=== PATIENT | female | born 1995 | race Caucasian/White ===

== ENCOUNTER 2019-10-24 10:29 | Outpatient (CLI) | payer OTHER ==
--- NOTE | 2019-10-24 17:41 | ULT ---
OB ULTRASOUND: 10/24/19 HISTORY: anatomy. FINDINGS: A single live intrauterine gestation is seen with measurements corresponding to an estimated gestatio nal age of 20 weeks, 0 days and TUAN at 03/12/20. The estimated weight measures 327 grams or 12 oz (46th percentile by Hadlock criteria). measurements are as follows: BPD 4.42 cm 19 weeks, 3 days HC 17.32 cm 20 weeks, 0 days AC 14.90 cm 20 weeks, 2 days FL 3.19 cm 20 weeks, 0 days heart rate measures 149 beats per minute. Placenta is posterior located without evidence of zion centa previa. Amniotic fluid index measures 10.5 cm. Cervical length measures 4.2 cm. Three vessel cord, cord insertion, kidneys, bladder, stomach, four chambered heart, lateral sulma tricles, cerebellum, spine, lips/nose, upper and lower extremities are visualized. No definite anomalies are seen. IMPRESSION: Single live intrauterine of 20 weeks estimated gestational age and TUAN at 03/12/20. POS: TALI
== END 2019-10-24 10:30 | disposition home or self-care (01) ==
LOC: BICULT 10:29
PROVIDERS: ATTEND Family Medicine
DX: Z34.02 Encounter for supervision of normal first pregnancy, second trimester (principal); Z3A.20 20 weeks gestation of pregnancy
CPT/HCPCS: 76805

== ENCOUNTER 2020-03-12 14:58 | Outpatient (CLI) | payer OTHER ==
[2020-03-15 00:12] LABS: SARS-CoV-2 MS2 Positive; SARS-CoV-2 N Gene Negative; SARS-CoV-2 S Gene Negative; SARS-CoV-2 by NAA Not Detected (Not Detected); SARS-CoV-2 orf1ab Negative
== END 2020-03-12 14:59 | disposition home or self-care (01) ==
LOC: LABBT 14:58
PROVIDERS: ATTEND Family Medicine
DX: Z20.828 Contact with and (suspected) exposure to other viral communicable diseases (principal)
CPT/HCPCS: 87635; U0003

== ENCOUNTER 2020-03-15 05:57 | Inpatient (IN) | payer OTHER ==
[2020-03-15 06:24] VITALS: BMI 39.8
[2020-03-15] MEDS ORDERED: Lidocaine 1% (PF) 30 ML VIAL SC PRN (07:34)
[2020-03-15] MEDS ORDERED: Ibuprofen 800 MG TAB PO PRN (07:34)
[2020-03-15] MEDS ORDERED: Misoprostol 200 MCG TAB PR PRN (07:34)
[2020-03-15] MEDS ORDERED: Butorphanol Tartrate 1 MG/ML VIAL SLOW IVP PRN (07:34)
[2020-03-15] MEDS ORDERED: hydrALAZINE 20 MG/ML VIAL SLOW IVP PRN (07:34)
[2020-03-15] MEDS ORDERED: Diphenoxylate HCl/Atropine Tablet PO PRN (07:34)
[2020-03-15] MEDS ORDERED: Methylergonovine 0.2 MG/ML VIAL IM PRN (07:34)
[2020-03-15] MEDS ORDERED: NS / Oxytocin 40 units/1000ml 1,000 ML IV PRN (07:34)
[2020-03-15] MEDS ORDERED: HYDROcodone/Acetaminophen 5/325 mg Tablet PO PRN (07:34)
[2020-03-15] MEDS ORDERED: Promethazine HCl 25 MG/ML VIAL IM PRN ×3 (07:34→22:15)
[2020-03-15] MEDS ORDERED: Ondansetron PF 4 MG/2 ML Vial IVP PRN ×3 (07:34→22:15)
[2020-03-15] MEDS ORDERED: NS w/ Oxytocin 10 units 500 ML IV SCH ×2 (07:45)
[2020-03-15] MEDS ORDERED: Fentanyl 4 mcg/Bup 0.1% Cadd 100 ML ONE (08:07)
[2020-03-15 08:13] LABS: Hemoglobin 11.4 g/dL (12.0-16.0); Mean Corpuscular HGB CONC 32.7 g/dL (32.0-36.0); Mean Corpuscular Hemoglobin 27.9 pg (27.0-31.0); Mean Corpuscular Volume 85.4 fL (78.0-98.0); Mean Platelet Volume 10.6 fL (7.4-10.4); Platelet Count 212 thou/uL (130-400); RBC Distribution Width 12.7 % (11.5-14.5); Red Blood Cell (RBC) Count 4.07 mill/uL (4.20-5.40); White Blood Cell (WBC) Count 16.7 thou/uL (4.8-10.8)
[2020-03-15 08:52] LABS: HBSAg Index 0.15 S/CO (0-0.99); Hep B Surf Ag Non-Reactive S/CO (NonReactive)
[2020-03-15 08:55] LABS: Syphilis Antibody Nonreactive (Nonreactive); Syphilis Antibody Index 0.04 S/CO (<1.00 Non-Reactive)
[2020-03-15] MEDS ORDERED: Acetaminophen 325 MG TAB PO PRN (09:08)
[2020-03-15] MEDS ORDERED: diphenhydrAMINE 50 MG/ML VIAL IVP PRN ×2 (09:08→22:15)
[2020-03-15] MEDS ORDERED: EPHEDRINE 25 MG/5 ML SYRINGE SLOW IVP PRN (09:08)
[2020-03-15] MEDS ORDERED: Naloxone HCl 0.4 mg/ml Vial IVP PRN ×4 (09:08→22:15)
[2020-03-15] MEDS ORDERED: Lactated Ringer's 500 ML IV PRN (09:08)
[2020-03-15] MEDS ORDERED: Fentanyl 4 mcg/Bupivacaine 0.1% Cassette 100 ML EPIDURAL SCH (09:15)
[2020-03-15] MEDS ORDERED: Communication Order-Pharmacy FS SCH ×2 (09:15→22:15)
[2020-03-15] MEDS ORDERED: EPHEDRINE 25 MG/5 ML SYRINGE ONE (13:25)
[2020-03-15] MEDS ORDERED: Bupivacaine HCl 0.5%/Epinephrine 1:200,000/PF 30 ml Vial ONE (13:25)
[2020-03-15] MEDS ORDERED: Azithromycin 500 MG VIAL ONE (20:29)
[2020-03-15] MEDS ORDERED: Fentanyl 100 MCG/2 ML VIAL ONE (20:53)
[2020-03-15] MEDS ORDERED: Morphine PF 10 MG/10 ML VIAL ONE (20:53)
[2020-03-15] MEDS ORDERED: Ondansetron PF 4 MG/2 ML Vial ONE (20:54)
[2020-03-15] MEDS ORDERED: PHENYLEPHRINE-NS 100 MCG/ML 10 ML SYRINGE ONE (20:54)
[2020-03-15] MEDS ORDERED: Ketorolac Tromethamine 30 MG/ML VIAL ONE (20:54)
[2020-03-15] MEDS ORDERED: ePHEDrine 50 MG/ML VIAL ONE (20:54)
[2020-03-15] MEDS ORDERED: Dexamethasone 4 mg/ml Vial ONE (20:54)
[2020-03-15] MEDS ORDERED: Oxytocin 10 UNITS/ML VIAL ONE (20:54)
[2020-03-15] MEDS ORDERED: Methylergonovine 0.2 MG/ML VIAL ONE (21:27)
[2020-03-15] MEDS ORDERED: Carboprost 250 MCG/ML AMP ONE ×2 (21:27→21:41)
[2020-03-15] MEDS: Carboprost 250 MCG/ML AMP IM PRN ×2 (21:29→21:48)
[2020-03-15] MEDS ORDERED: Misoprostol 200 MCG TAB ONE (21:32)
[2020-03-15] MEDS ORDERED: Promethazine HCl 25 MG/ML VIAL ONE (22:02)
[2020-03-15] MEDS ORDERED: Ondansetron HCl/PF 4 MG/2 ML Vial IVP PRN (22:15)
[2020-03-15] MEDS ORDERED: HYDROmorphone 2 MG/ML VIAL SLOW IVP PRN (22:15)
[2020-03-15] MEDS ORDERED: L&D-Morphine 4 MG/ML VIAL SLOW IVP PRN (22:15)
[2020-03-15] MEDS ORDERED: Ketorolac Tromethamine 30 MG/ML VIAL IVP PRN (22:15)
[2020-03-15] MEDS ORDERED: Naloxone HCl 0.4 mg/ml Vial IV PRN (22:15)
[2020-03-15] MEDS ORDERED: Promethazine HCl 25 MG SUPP PR PRN (22:15)
[2020-03-15] MEDS ORDERED: Meperidine HCl/PF 25 MG/ML VIAL SLOW IVP PRN (22:15)
--- NOTE | 2020-03-15 22:16 | PDOC.OPDEL ---
OB Operative/Delivery Note Delivery Dr/Surgeon: Dr. Blancas Assist: Dr. Kaiser - Additional Findings/Plan Compilations/Other Findings: Procedure Note Date of Procedure: 03/15/2020 Resident Surgeon: Dr. Keke Kaiser PGY2 Attending Surgeon: Dr. Blancas Procedure: Primary low transverse caesarean section Preoperative Diagnosis: 1)Term intrauterine , in labor 2) Failure to descend Postoperative Diagnosis: 1)same as above Anesthesia: spinal Indications: The patient is a 24 year old G1 female at 40.1 weeks gestation who presented in active labor, but had failure to descend despite 2.5 hours of pushing. Procedure in Detail: After risks, benefits, and alternatives were explained to the patient, she gave informed consent. Pre-operative antibiotics included Cefazolin 2 gram IV. The patient was taken to the operating room and spinal anesthesia was initiated. She was placed in the supine position with a left tilt and prepped and draped in usual sterile fashion. A Pfannenstiel incision was made with a scalpel and carried down to the level of the fascia which was sharply nicked. The fascial cut was extended bilaterally with Salazar sissors. The inferior and superior edges of the cut fascial edges were elevated with Wilner c lamps and the underlying rectus muscles were sharply and bluntly dissected free. The recti were divided digitally and retracted manually. The peritoneum was entered bluntly and retracted manually. Bladder blade was placed. A low transverse score was made with the scalpel and the uterus was entered in the midline with the scalpel. Clear fluid was seen. The hysterotomy was extended manually. The infant was noted to be vertex and was easily delivered by fundal pressure. Mouth and nares were bulb suctioned. Cord clamped and cut and grossly normal male infant was handed to waiting nurse. Cord blood was obtained. Placenta was manually extracted, found to be intact with 3 vessel cord and discarded. The uterus was externalized and the endometrium was curetted with a dry lap. The bladder blade was replaced and the uterus was closed with a running locking 1-0 Monocryl followed by a running non-locking 1-0 Monocryl imbricating suture. The uterus remained boggy. Hemabate, Methergine, and Cytotec were administerd. Following this hemostasis was noted and the uterus was becoming more firm. Sepra film was placed over the hysterotomy. The abdomen was irrigated with saline and suctioned free of clots. The uterus was internalized and the hysterotomy was again noted to be hemostatic. The fascia was closed with a running non-locking 1-0 PDS suture. The subcutaneous tissue was irrigated and approximated with 3-0 Vicryl. The skin was approximated with jessi and a pressure dressing was placed. All counts were correct. The patient tolerated the procedure well and was taken to the recovery room in stable condition. Estimated Blood Loss: 750 ml, QBL pending. Complications: None Specimens: Cord blood sent to lab for blood type Findings: Grossly normal male . Grossly normal placenta with 3 vessel cord discarded. Drains: Seaman to gravity draining clear urine
[2020-03-15] MEDS: Lactated Ringer's 1,000 ML IV SCH (22:22)
[2020-03-16] MEDS ORDERED: Ondansetron PF 4 MG/2 ML Vial IVP PRN (00:05)
[2020-03-16] MEDS ORDERED: Diphenoxylate HCl/Atropine Tablet PO PRN (00:05)
[2020-03-16] MEDS ORDERED: hydrALAZINE 20 MG/ML VIAL SLOW IVP PRN (00:05)
[2020-03-16] MEDS ORDERED: Simethicone Chewable 80 MG TAB PO PRN (00:05)
[2020-03-16] MEDS ORDERED: Promethazine HCl 25 MG/ML VIAL IM PRN (00:05)
[2020-03-16] MEDS ORDERED: Bisacodyl 10 MG SUPP PR PRN (00:05)
[2020-03-16] MEDS ORDERED: diphenhydrAMINE 25 MG CAP PO PRN (00:05)
[2020-03-16] MEDS ORDERED: NS / Oxytocin 40 units/1000ml 1,000 ML IV SCH (00:05)
[2020-03-16] MEDS: Ketorolac Tromethamine 30 MG/ML VIAL IVP SCH ×3 (03:27→17:44)
[2020-03-16] MEDS ORDERED: Misoprostol 200 MCG TAB PO SCH (04:00)
[2020-03-16 06:26] LABS: Hemoglobin 9.3 g/dL (12.0-16.0); Mean Corpuscular HGB CONC 33.9 g/dL (32.0-36.0); Mean Corpuscular Hemoglobin 29.2 pg (27.0-31.0); Mean Corpuscular Volume 86.1 fL (78.0-98.0); Platelet Count 175 thou/uL (130-400); RBC Distribution Width 12.6 % (11.5-14.5); Red Blood Cell (RBC) Count 3.18 mill/uL (4.20-5.40); White Blood Cell (WBC) Count 20.2 thou/uL (4.8-10.8)
[2020-03-16] MEDS ORDERED: Adacel (T-DAP) 0.5 ML SYRINGE IM ONE (09:00)
[2020-03-16] MEDS: Docusate Calcium (SURFAK) 240 MG CAP PO SCH ×2 (09:22→22:45)
[2020-03-16] MEDS: Ferrous Sulfate 325 MG TAB PO SCH ×2 (09:22→22:46)
[2020-03-16] MEDS: Lactated Ringer's 1,000 ML IV SCH (09:23)
[2020-03-16] MEDS: Prenatal Vitamin 1 TAB PO SCH (09:23)
[2020-03-16] MEDS ORDERED: HYDROcodone/Acetaminophen 5/325 mg Tablet PO PRN ×2 (10:15)
[2020-03-16] MEDS ORDERED: Meperidine HCl/PF 25 MG/ML VIAL IM PRN (10:15)
[2020-03-17] MEDS: Ketorolac Tromethamine 30 MG/ML VIAL IVP SCH (00:02)
[2020-03-17] MEDS ORDERED: Sodium Chloride 0.9% 10 ML ONE (00:03)
[2020-03-17] MEDS: Ibuprofen 800 MG TAB PO SCH ×3 (06:39→22:01)
[2020-03-17] MEDS: Prenatal Vitamin 1 TAB PO SCH (08:03)
[2020-03-17] MEDS: Docusate Calcium (SURFAK) 240 MG CAP PO SCH ×2 (08:04→22:02)
[2020-03-17] MEDS: Ferrous Sulfate 325 MG TAB PO SCH ×2 (08:04→22:02)
[2020-03-17] MEDS: Lanolin Ointment 7 GM TUBE TOP PRN (08:04)
[2020-03-18] MEDS: Ibuprofen 800 MG TAB PO SCH ×2 (05:37→15:57)
[2020-03-18] MEDS: Lanolin Ointment 7 GM TUBE TOP PRN (08:13)
[2020-03-18] MEDS: Prenatal Vitamin 1 TAB PO SCH (08:13)
[2020-03-18] MEDS: Ferrous Sulfate 325 MG TAB PO SCH (08:13)
[2020-03-18] MEDS: Docusate Calcium (SURFAK) 240 MG CAP PO SCH (08:13)
[2020-03-18 09:12] VITALS: BP 112/61; TEMP 97.7
[2020-03-18] MEDS ORDERED: Acetaminophen 500 MG TAB PO PRN (11:49)
--- NOTE | 2020-03-21 02:11 | PQF ---
CLINICAL DOCUMENTATION CLARIFICATION FORM: Dear : Jamal Blancas Date / Time: 03/21/2020 Please exercise your independent, professional judgment in responding to the clarification form. Clinical indicators are provided on the bottom of this form for your review Please check appropriate box(es): [ ] Uterine atony with hemorrhage [ ] Uterine atony without hemorrhage [ ] Other diagnosis [ ] Unable to determine In addition, please specify: Present on Admission (POA): [ ] Yes [ ] No [ ] Unable to determine To be completed by CDI/Coding staff for physician review: Present Clinical Indicators - Signs / Symptoms / Labs Results and Location in Medical Record [ x ] Pospartum complication is uterine atony Discharge summary [ x ] Uterus remained boggy. Hemabate, Methergine and Cytotec were administered Labor and delivery report 03/15 by Jamal Blancas MD [ x ] Hemoglobins were 11.4 on 03/15 and 9.3 on 03/16. Hematocrits were 34.7 on 03/15 and 27.3 on 03/16. Laboratory Present Risk Factors Results and Location in Medical Record [ x ] Primary low transverse section delivery Labor and delivery report 03/15 by Jamal Blancas MD [ x ] Estimated blood loss: 750 mL Labor and delivery report 03/15 by Jamal Blancas MD Present Treatments Results and Location in Medical Record [ x ] Hemabate IM, Methergine IM 03/15 Medications CDS/Cad Technician Signature: [id number] Phone #: Date/Time: 03/21/2020 This is a permanent part of the Medical Record [facility]
== END 2020-03-18 18:45 | disposition home or self-care (01) | DRG 788 ==
LOC: L&D/OP 05:57 → L&D 07:09 → 3SW 03-16 01:08
PROVIDERS: ADMIT Family Medicine; ATTEND Family Medicine
PROC: 10D00Z1 Extraction of Products of Conception, Low, Open Approach (ICD-10-PCS; principal; 2020-03-15)
DX: O48.0 Post-term pregnancy (principal); Z3A.40 40 weeks gestation of pregnancy; Z37.0 Single live birth; O32.4XX0 Maternal care for high head at term, not applicable or unspecified; O62.2 Other uterine inertia; O76 Abnormality in fetal heart rate and rhythm complicating labor and delivery
CPT/HCPCS: 36415; 51702; 85027; 86780; 86850; 86900; 86901; 87340; 99285; J1100; J1885; J2210; J2270; J2405; J2550; J2590; J3010; J3490